=== PATIENT | female | born 1965 | race American Indian/Alaskan Native ===

== ENCOUNTER 2018-04-22 21:19 | Emergency (ER) | payer OTHER ==
[2018-04-22 21:26] VITALS: BP 157/85
--- NOTE | 2018-04-22 23:16 | XRay Report ---
PROCEDURE: XR KNEE BILAT 3V TECHNIQUE: BILATERAL knee radiographs, AP, lateral, and views. HISTORY: bilateral knee pain. COMPARISONS: None . FINDINGS: Fracture (s) and/or Dislocation(s): None . Alignment: Normal . Joint space(s): Normal . Soft tissues: Normal . Bone mineralization: Normal . Foreign bodies: None . IMPRESSION: Normal Examination of both knees . This document is electronically signed by Jovan Luna MD., April 22 2018 11:15:01 PM ET
[2018-04-23] MEDS ORDERED: TYLENOL #3 PO ONE (00:10)
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
== END 2018-04-23 00:53 | disposition home or self-care (01) ==
LOC: ED 21:19
DX: S86.911A Strain of unspecified muscle(s) and tendon(s) at lower leg level, right leg, initial encounter (principal); Z88.2 Allergy status to sulfonamides; Z88.6 Allergy status to analgesic agent; Z90.49 Acquired absence of other specified parts of digestive tract; Z90.710 Acquired absence of both cervix and uterus; V49.49XA Driver injured in collision with other motor vehicles in traffic accident, initial encounter; Y93.89 Activity, other specified; Y92.488 Other paved roadways as the place of occurrence of the external cause; Y99.8 Other external cause status
CPT/HCPCS: 99283